=== PATIENT | female | born 1985 | race Caucasian/White ===

== ENCOUNTER → 2022-04-02 08:12 | Outpatient (BNVA) | payer MEDICARE, MEDICAID, SELFPAY | PROVIDERS: Family Provider Family Medicine; PCP Family Medicine; Visit Provider Podiatrist Foot & Ankle Surgery | DX: B07.8 Other viral warts (principal); B07.0 Plantar wart | CPT/HCPCS: 17110 ==

== ENCOUNTER → 2022-07-14 12:59 | Outpatient (BNVA) | payer MEDICARE, MEDICAID, SELFPAY | PROVIDERS: Family Provider Family Medicine; PCP Family Medicine; Visit Provider Podiatrist Foot & Ankle Surgery | DX: L84 Corns and callosities (principal); B07.8 Other viral warts; B07.0 Plantar wart | CPT/HCPCS: 17110 ==

== ENCOUNTER → 2022-09-15 12:47 | Outpatient (BNVA) | payer MEDICARE, MEDICAID, SELFPAY | PROVIDERS: Family Provider Family Medicine; PCP Family Medicine; Visit Provider Podiatrist Foot & Ankle Surgery | DX: B35.1 Tinea unguium (principal); B07.9 Viral wart, unspecified; L60.0 Ingrowing nail | CPT/HCPCS: 17110; 73600; 73630; 99214 ==

== ENCOUNTER → 2022-10-08 07:37 | Outpatient (BNVA) | payer MEDICARE, MEDICAID, SELFPAY | PROVIDERS: Family Provider Family Medicine; PCP Family Medicine; Visit Provider Podiatrist Foot & Ankle Surgery | DX: L60.0 Ingrowing nail (principal); B35.1 Tinea unguium; B07.9 Viral wart, unspecified | CPT/HCPCS: 11750; A6219; A6446 ==

== ENCOUNTER → 2022-11-26 07:54 | Outpatient (BNVA) | payer MEDICARE, MEDICAID, SELFPAY | PROVIDERS: Family Provider Family Medicine; PCP Family Medicine; Visit Provider Podiatrist Foot & Ankle Surgery | DX: L60.0 Ingrowing nail (principal); B35.1 Tinea unguium; B07.9 Viral wart, unspecified | CPT/HCPCS: 99213 ==

== ENCOUNTER → 2023-01-26 10:21 | Outpatient (BNVA) | payer MEDICARE, MEDICAID, SELFPAY | PROVIDERS: Family Provider Family Medicine; PCP Family Medicine; Visit Provider Podiatrist Foot & Ankle Surgery | DX: S92.335A Nondisplaced fracture of third metatarsal bone, left foot, initial encounter for closed fracture (principal); X50.1XXA Overexertion from prolonged static or awkward postures, initial encounter; Y93.K1 Activity, walking an animal | CPT/HCPCS: 73610; 73620 ==

== ENCOUNTER 2023-01-26 11:01 | Outpatient (CLI) | payer MEDICARE, MEDICAID, SELFPAY | END 2023-01-26 11:02 | disposition home or self-care (01) | LOC: SPT 11:01 | PROVIDERS: Family Provider Family Medicine; PCP Family Medicine; Visit Provider Podiatrist Foot & Ankle Surgery | DX: Z46.89 Encounter for fitting and adjustment of other specified devices (principal); S92.335D Nondisplaced fracture of third metatarsal bone, left foot, subsequent encounter for fracture with routine healing; X58.XXXD Exposure to other specified factors, subsequent encounter | CPT/HCPCS: 97760; 99214; L4361 ==

== ENCOUNTER → 2023-02-16 14:07 | Outpatient (BNVA) | payer MEDICARE, MEDICAID, SELFPAY | PROVIDERS: Family Provider Family Medicine; PCP Family Medicine; Visit Provider Podiatrist Foot & Ankle Surgery | DX: S92.335A Nondisplaced fracture of third metatarsal bone, left foot, initial encounter for closed fracture (principal); X58.XXXA Exposure to other specified factors, initial encounter | CPT/HCPCS: 73630; 99213 ==

== ENCOUNTER → 2023-02-23 12:29 | Outpatient (BNVA) | payer MEDICARE, MEDICAID, SELFPAY | PROVIDERS: Family Provider Family Medicine; PCP Family Medicine; Visit Provider Podiatrist Foot & Ankle Surgery | DX: B07.9 Viral wart, unspecified (principal) | CPT/HCPCS: 17110 ==

== ENCOUNTER → 2023-03-09 13:17 | Outpatient (BNVA) | payer MEDICARE, MEDICAID, SELFPAY | PROVIDERS: Family Provider Family Medicine; PCP Family Medicine; Visit Provider Podiatrist Foot & Ankle Surgery | DX: S92.332D Displaced fracture of third metatarsal bone, left foot, subsequent encounter for fracture with routine healing (principal); X58.XXXD Exposure to other specified factors, subsequent encounter | CPT/HCPCS: 73630; 99213 ==

== ENCOUNTER → 2023-05-03 10:55 | Outpatient (BNVA) | payer MEDICARE, MEDICAID, SELFPAY | PROVIDERS: Family Provider Family Medicine; PCP Family Medicine; Visit Provider Podiatrist Foot & Ankle Surgery | DX: B07.0 Plantar wart (principal) | CPT/HCPCS: 17110 ==

== ENCOUNTER → 2023-07-05 13:11 | Outpatient (BNVA) | payer MEDICARE, MEDICAID, SELFPAY | PROVIDERS: Family Provider Family Medicine; PCP Family Medicine; Visit Provider Podiatrist Foot & Ankle Surgery | DX: B07.0 Plantar wart | CPT/HCPCS: 99213 ==

== ENCOUNTER 2024-07-18 20:00 | Outpatient (CLI) | payer MEDICARE, MEDICAID, SELFPAY | END 2024-07-18 20:01 | disposition home or self-care (01) | LOC: SLEEP 07-19 01:28 | PROVIDERS: Family Provider Family Medicine; PCP Family Medicine; Visit Provider Nurse Practitioner Family | DX: G47.33 Obstructive sleep apnea (adult) (pediatric) (principal); G47.36 Sleep related hypoventilation in conditions classified elsewhere | CPT/HCPCS: 95810 ==

== ENCOUNTER 2024-08-10 14:57 | Outpatient (RCR) | payer MEDICARE, MEDICAID, SELFPAY | END 2024-08-28 23:59 | disposition home or self-care (01) | LOC: SPT 14:57 | PROVIDERS: Family Provider Family Medicine; PCP Family Medicine; Visit Provider Nurse Practitioner Family | DX: M79.604 Pain in right leg (principal); M79.605 Pain in left leg | CPT/HCPCS: 97161 ==

== ENCOUNTER 2024-08-29 06:00 | Outpatient (RCR) | payer MEDICARE, MEDICAID, SELFPAY | END 2024-09-28 23:59 | disposition home or self-care (01) | LOC: SPT 06:00 | PROVIDERS: PCP Family Medicine; Visit Provider Nurse Practitioner Family | DX: M79.604 Pain in right leg (principal); M79.605 Pain in left leg | CPT/HCPCS: 97110 ==

== ENCOUNTER 2024-10-10 07:46 | Outpatient (CLI) | payer MEDICARE, MEDICAID, SELFPAY ==
[2024-10-10 08:20] VITALS: PULSE 83; RESP 18; O2SAT 95
[2024-10-10] MEDS: albuterol 2.5 mg/3 mL Neb INHALATION (08:20)
[2024-10-10 08:25] VITALS: PULSE 95
== END 2024-10-10 07:47 | disposition home or self-care (01) ==
PROVIDERS: PCP Nurse Practitioner Family; Visit Provider Nurse Practitioner Family
DX: R06.00 Dyspnea, unspecified (principal); R94.2 Abnormal results of pulmonary function studies
CPT/HCPCS: 94060; J7613

== ENCOUNTER 2025-04-18 09:30 | Outpatient (CLI) | payer MEDICARE, MEDICAID, SELFPAY ==
--- NOTE | 2025-04-18 09:40 | XRR_ITS ---
PROCEDURE INFORMATION: Exam: XR Bilateral Hips Exam date and time: 04/18/2025 9:49 AM Age: 40 years old Clinical indication: Hip pain; Bilateral; Pain in back and down legs while walking x2017, no specific injury, more pain while walking; Additional info: Chronic bilateral hip pain/chronic back pain TECHNIQUE: Imaging protocol: Radiologic exam of the bilateral hips. Views: 2 views of hips with pelvis when performed. COMPARISON: CR XR lumbar spine 2-3V* [id number] 04/18/2025 9:49 AM FINDINGS: Bones/joints: No fracture or joint dislocation involving either hip joint. Joint space is preserved bilaterally. Soft tissues: Unremarkable. XR/XR hip BI 2V wo/w pel [id number] IMPRESSION: No acute findings.
--- NOTE | 2025-04-18 09:40 | XRR_ITS ---
PROCEDURE INFORMATION: Exam: XR Lumbosacral Spine Exam date and time: 04/18/2025 9:49 AM Age: 40 years old Clinical indication: Low back pain; Pain in back and down legs while walking x2017, no specific injury, more pain while walking; Additional info: Chronic back pain/breast hypertrophy TECHNIQUE: Imaging protocol: Radiologic exam of the lumbosacral spine. Views: 2 or 3 views. COMPARISON: CR XR hip BI 2V wo/w pel [id number] 04/18/2025 9:49 AM FINDINGS: Bones/joints: No fracture or facet subluxation. Soft tissues: Unremarkable. XR/XR lumbar spine 2-3V* [id number] IMPRESSION: No acute findings.
--- NOTE | 2025-04-18 09:40 | XRR_ITS ---
PROCEDURE INFORMATION: Exam: XR Cervical Spine Exam date and time: 04/18/2025 9:49 AM Age: 40 years old Clinical indication: Neck pain; Pain in back and down legs while walking x2017, no specific injury, more pain while walking; Additional info: Chronic back pain TECHNIQUE: Imaging protocol: Radiologic exam of the cervical spine. Views: 2 or 3 views. COMPARISON: No relevant prior studies available. FINDINGS: Bones/joints: Vertebral body height is maintained. No subluxation. Normal bone mineralization. Reversal of normal cervical lordosis. Mild loss of disc space height at C5-C6 and C6-C7. No abnormal motion of the cervical spine during flexion or extension maneuvers. No acute fracture. Soft tissues: No prevertebral soft tissue swelling or general soft tissue swelling. No soft tissue emphysema. No radiopaque foreign body. XR/XR cervical spine fl/ex [id number] IMPRESSION: 1. Mild loss of disc space height at C5-C6 and C6-C7. 2. No abnormal motion of the cervical spine during flexion or extension maneuvers. 3. Incidental/nonacute findings are listed in the report.
--- NOTE | 2025-04-18 09:40 | XRR_ITS ---
PROCEDURE INFORMATION: Exam: XR Thoracic Spine Exam date and time: 04/18/2025 9:49 AM Age: 40 years old Clinical indication: Pain in thoracic spine; Pain in back and down legs while walking x2017, no specific injury, more pain while walking; Additional info: Chronic back pain/breast hypertrophy TECHNIQUE: Imaging protocol: Radiologic exam of the thoracic spine. Views: 3 views. COMPARISON: CR XR cervical spine fl/ex [id number] 04/18/2025 9:49 AM FINDINGS: Bones/joints: No acute fracture. Bony alignment is preserved. Soft tissues: Unremarkable. XR/XR thoracic spine 3V* [id number] IMPRESSION: No acute findings.
== END 2025-04-18 09:31 | disposition home or self-care (01) ==
LOC: LAB 09:34 → RAD 09:38
PROVIDERS: PCP Nurse Practitioner Family; Visit Provider Nurse Practitioner Family
DX: M54.9 Dorsalgia, unspecified (principal); N62 Hypertrophy of breast; M25.551 Pain in right hip; M25.552 Pain in left hip; M50.322 Other cervical disc degeneration at C5-C6 level; M50.323 Other cervical disc degeneration at C6-C7 level; R93.7 Abnormal findings on diagnostic imaging of other parts of musculoskeletal system
CPT/HCPCS: 72040; 72072; 72100; 73521

== ENCOUNTER 2025-04-24 10:24 | Outpatient (CLI) | payer MEDICARE, MEDICAID, SELFPAY ==
--- NOTE | 2025-04-24 10:32 | MM_ITS ---
WS: [id number] BILATERAL 3D TOMOSYNTHESIS DIGITAL SCREENING MAMMOGRAPHY WITH CAD CLINICAL INFORMATION: SCREENING HISTORY: Screening mammogram. No current complaints. COMPARISON: Baseline TECHNIQUE: Bilateral CC and MLO views. FINDINGS: The breasts are composed of heterogeneous fibroglandular density tissue, which can limit the detection of small underlying mass lesions. No suspicious mass, asymmetry, calcifications, or architectural distortion. No evidence of malignancy. MM/MM scr tomosynthesis [id number] IMPRESSION: DENSITY: The breasts are heterogeneously dense, which may obscure small masses. BI-RADS: 1 - Negative FOLLOW UP: 1 Year Follow-up Recommend return to annual screening mammography.
== END 2025-04-24 10:25 | disposition home or self-care (01) ==
PROVIDERS: PCP Nurse Practitioner Family; Visit Provider Nurse Practitioner Family
DX: Z12.31 Encounter for screening mammogram for malignant neoplasm of breast (principal); R92.333 Mammographic heterogeneous density, bilateral breasts
CPT/HCPCS: 77063; 77067

== ENCOUNTER 2025-06-22 12:00 | Outpatient (CLI) | payer OTHER, MEDICAID, SELFPAY ==
--- NOTE | 2025-06-22 12:21 | CTR_ITS ---
PROCEDURE INFORMATION: Exam: CT Chest Without Contrast; Diagnostic Exam date and time: 06/22/2025 12:32 PM Age: 40 years old Clinical indication: Condition or disease; Other: Restrictive lung disease; Prior surgery; Surgery date: 6+ months; Surgery type: Right kidney removed at TECHNIQUE: Imaging protocol: Diagnostic computed tomography of the chest without contrast. Radiation optimization: All CT scans at this facility use at least one of these dose optimization techniques: automated exposure control; mA and/or kV adjustment per patient size (includes targeted exams where dose is matched to clinical indication); or iterative reconstruction. COMPARISON: CR XR thoracic spine 3V* [id number] 04/18/2025 9:49 AM RADIATION DOSE METRICS: Total DLP (mGy-cm): 380.92 FINDINGS: Lungs: Lung volumes are low. There is subsegmental atelectasis in the lung bases. Trachea and bronchi are normal. There is moderate patchy air trapping throughout both lungs. Pleural spaces: There is no pleural effusion or pneumothorax. Heart: Heart size is normal. There is trace pericardial effusion. Coronary arteries: Coronary artery calcification is absent. Lymph nodes: There is no mediastinal or hilar lymphadenopathy. Vasculature: The aorta is unremarkable. There is no aneurysm. Intraperitoneal space: Visible structures in the upper abdomen are unremarkable. Bones/joints: Bones are unremarkable. Soft tissues: The extrathoracic soft tissues are unremarkable. CT/CT chest con [id number] IMPRESSION: 1. Patchy air trapping bilaterally consistent with chronic constrictive bronchiolitis. No sign of acute bronchiolitis. 2. Low lung volumes with subsegmental atelectasis in the lung bases.
== END 2025-06-22 12:01 | disposition home or self-care (01) ==
LOC: RAD 12:02
PROVIDERS: PCP Nurse Practitioner Family; Visit Provider Student in an Organized Health Care Education/Training Program
DX: J98.4 Other disorders of lung (principal)
CPT/HCPCS: 71250

== ENCOUNTER 2025-08-19 21:06 | Emergency (ER) | payer OTHER, MEDICAID, SELFPAY ==
[2025-08-19 21:05] VITALS: BP 119/84; PULSE 99; RESP 16; TEMP 36.3; O2SAT 98; BMI 33.7
[2025-08-19 21:40] VITALS: BP 119/84; PULSE 95; RESP 16; O2SAT 99
[2025-08-19 21:57] VITALS: BP 119/84; PULSE 93; RESP 16; O2SAT 95
--- NOTE | 2025-08-19 23:47 | W.ED.GENADLT ---
HPI - General Adult General: Chief complaint: Airway/Esophagus Foreign Body Stated complaint: CHOKED ON A GRAPE Time Seen by Provider: 08/19/25 21:19 History of Present Illness: 40-year-old female with history of obstructive sleep apnea (BRODERICK) on CPAP, recent breast reduction surgery 2 weeks ago without complications, and recent dental extractions (upper teeth removed; lower extractions planned next week) presented after choking on a whole grape at home. Guardian/aunt reports patient turned blue with guevara-appearing tongue, was unable to speak, and had markedly limited airflow but continued to cough; obstruction lasted approximately 7 minutes before patient spontaneously expelled a whole grape. During the event, patient vomited and had copious clear mucus from nose and mouth. EMS met guardian en route; on arrival to ED patient had no complaints and was speaking in full sentences. Guardian worried about aspiration; clinician discussed that aspiration findings often appear 2?3 days later. Prior pulmonology visit reportedly noted ?small airway? and restrictive lung disease per aunt. Patient states breathing feels easier since breast reduction. Related Data Previous Rx's ?Medication ?Instructions ?Recorded fluorouracil 5 % topical cream 1 applic topical BID #40 grams 10/09/22 (Efudex) CAM BOOT to the left #1 ea 01/26/23 Allergies Allergy/AdvReac Type Severity Reaction Status Date / Time No Known Allergies Allergy Verified 08/19/25 21:10 [facility] ED PFSH: Social History Smoking and tobacco/nicotine status: never used tobacco/nicotine Physical Exam Const: COMMON NORMALS: no acute distress, patient oriented x3 and alert HENMT: COMMON NORMALS: normocephalic and atraumatic HEAD & SCALP: normocephalic and atraumatic Eye: COMMON NORMALS: Equal, round and reactive pupils present, EOMs intact bilaterally and no scleral icterus PUPIL: Yes Equal, round and reactive pupils present Resp: COMMON NORMALS: normal respiratory effort and No retractions Cardio: COMMON NORMALS: regular rate, regular rhythm and No murmurs present (Cardio) RATE: regular rate RHYTHM: regular rhythm GI: COMMON NORMALS: Normal to inspection, nondistended, normoactive bowel sounds present, Soft to palpation and non-tender PALPATION: Yes Soft to palpation Neuro: COMMON NORMALS: patient oriented x3 SENSORIUM/ORIENTATION: Yes alert Skin: COMMON NORMALS: no rashes or lesions noted GENERAL SKIN EXAM: no rashes or lesions noted Course Vital Signs: Vital signs: Vital Signs Temperature 97.4 F L 08/19/25 21:05 Pulse Rate 93 08/19/25 21:57 Respiratory Rate 16 08/19/25 21:57 Blood Pressure 119/84 08/19/25 21:57 Pulse Oximetry 95 08/19/25 21:57 Oxygen Delivery Me thod Room Air 08/19/25 21:40 MDM - General Adult Medical Decision Making 40-year-old female with BRODERICK on CPAP and recent breast reduction presented after choking on a whole grape with cyanosis and inability to speak, which resolved after expulsion of the intact grape. She is currently asymptomatic and speaking in full sentences. Differential diagnosis centered on transient esophageal impaction compressing the airway versus true tracheal foreign body with aspiration. Clinician felt the course most consistent with esophageal impaction causing airway compression, given intact grape expelled and subsequent resolution. Aspiration discussed as less likely; irritation and radiographic changes typically appear 2?5 days later. Baseline chest X-ray was offered but deferred given low yield now; clinician planned blood draw prior to discharge. Return precautions given for fever, worsening cough, or respiratory symptoms concerning for aspiration. No radiology studies performed this visit Discharge Plan Discharge Patient Disposition: Home Clinical Impression: Choking due to food (regurgitated) Condition: Stable Prescriptions: No Action (DME) CAM BOOT to the left See Rx Instructions .Route .MEDSUPPLY Qty: 1 0RF Rx Instructions: As directed fluorouracil [Efudex] 5 % cream 1 applic topical BID Qty: 40 3RF Discharge Orders: Discharge ED (Routine); Ordered 08/19/25 Ordered By: Francisco Jackson Referrals: Tamy Mckeon FNP [Primary Care Provider, Nurse Practitioner] Discharge Diet: Usual diet Patient Instructions: Choking, Patient Portal & [place] Instructions Print Language: Palestinian Coding Level of Care Code ED Car Chaser for Charisse Noble
== END 2025-08-19 21:58 | disposition home or self-care (01) ==
PROVIDERS: Emergency Provider Student in an Organized Health Care Education/Training Program; PCP Nurse Practitioner Family
DX: T17.928A Food in respiratory tract, part unspecified causing other injury, initial encounter (principal); R11.10 Vomiting, unspecified; W44.F3XA Food entering into or through a natural orifice, initial encounter
CPT/HCPCS: 99281